=== PATIENT | female | born 1940 | race Caucasian/White ===

== ENCOUNTER 2018-03-09 13:25 | Emergency (ER) | payer MEDICARE ==
[~2018-03-09] VITALS: Ht 167.6 cm; Wt 74.0 kg
[~2018-03-09 13:25] MED LIST: GABA600T2 PO; HYDR-565 PO
[2018-03-09 13:30] VITALS: BP 120/62
[2018-03-09 13:59] LABS: BASOPHILS # (AUTO) 0.1 X10'3 (0-0.2); BASOPHILS % (AUTO) 0.9 % (0-1); EOSINOPHILS # (AUTO) 0.4 X10'3 (0-0.9); EOSINOPHILS % (AUTO) 5.6 % (0-6); HEMATOCRIT 40.1 % (35.0-45.0); HEMOGLOBIN 13.8 g/dl (12.0-16.0); LYMPHOCYTES # (AUTO) 1.3 X10'3 (1.1-4.8); LYMPHOCYTES % (AUTO) 16.5 % (21-51); MEAN CORPUSCULAR HEMOGLOBIN 29.7 PG (27.0-31.0); MEAN CORPUSCULAR HGB CONC 34.5 % (33.0-36.5); MEAN PLATELET VOLUME 7.1 FL (7.4-10.4); MONOCYTES # (AUTO) 0.3 X10'3 (0-0.9); MONOCYTES % (AUTO) 3.8 % (2-12); NEUTROPHILS # (AUTO) 5.7 X10'3 (1.8-7.7); NEUTROPHILS % (AUTO) 73.2 % (42-75); PLATELET COUNT 269 X10'3 (140-440); RED BLOOD COUNT 4.66 X10'6 (4.20-5.60); RED CELL DISTRIBUTION WIDTH 13.9 % (11.5-14.5); WHITE BLOOD COUNT 7.8 X10'3 (4.5-11.0)
[2018-03-09 14:06] LABS: PARTIAL THROMBOPLASTIN TIME 28 SECONDS (22-32); PROTHROMBIN TIME 10.7 SECONDS (9.0-12.0)
[2018-03-09 14:11] LABS: ALANINE AMINOTRANSFERASE 21 U/L (12-78); ALBUMIN 3.2 G/DL (3.4-5.0); ALBUMIN/GLOBULIN RATIO 0.7 (1.1-1.5); ALKALINE PHOSPHATASE 122 IU/L (46-116); ANION GAP 11 (8-16); ASPARTATE AMINO TRANSFERASE 17 U/L (10-37); BILIRUBIN,TOTAL 0.5 MG/DL (0.1-1.0); BLOOD UREA NITROGEN 14 MG/DL (7-18); BUN/CREATININE RATIO 9.7 (6.6-38.0); CALCIUM 9.2 MG/DL (8.5-10.1); CHLORIDE 106 MMOL/L (99-107); CREATININE 1.44 MG/DL (0.40-0.90); GLUCOSE 160 MG/DL (70-104); POTASSIUM 3.6 MMOL/L (3.5-5.1); SODIUM 143 MMOL/L (135-145); TOTAL CARBON DIOXIDE 25.8 MMOL/L (24-32); TOTAL PROTEIN 7.9 G/DL (6.4-8.2); eGFR 35 ML/MIN
[2018-03-09] MEDS ORDERED: AZIT-63 PO (17:12)
[2018-03-09] MEDS ORDERED: azithromycin 250mg tablet PO ONE (17:15)
== END 2018-03-09 17:34 | disposition home or self-care (01) ==
LOC: ER 13:25
DX: J06.9 Acute upper respiratory infection, unspecified (principal); K21.9 Gastro-esophageal reflux disease without esophagitis; Z90.710 Acquired absence of both cervix and uterus; Z98.890 Other specified postprocedural states; Z88.2 Allergy status to sulfonamides; Z88.5 Allergy status to narcotic agent; Z79.899 Other long term (current) drug therapy
CPT/HCPCS: 36415; 71045; 80053; 84484; 85025; 85610; 85730; 93005; 99285

== ENCOUNTER 2021-04-23 10:32 | Day surgery (SDC) | payer MEDICARE ==
[~2021-04-23] VITALS: Ht 167.6 cm; Wt 74.8 kg
[2021-04-23] VITALS (11 sets, daily range): BP systolic 117–150; BP diastolic 45–78
[~2021-04-23 10:32] MED LIST changes: +APIX5TAB3 PO; +ASPI-1071 PO; +COR3.125T PO; +GABA300C PO; -GABA600T2 PO; +HYDR-4353 PO; -HYDR-565 PO; +LISI2.5T2 PO
[2021-04-23] MEDS ORDERED: normal saline 1,000 ML IV SCH (11:10)
[2021-04-23] MEDS ORDERED: diphenhydrAMINE 25mg capsule PO PRN (11:10)
[2021-04-23 11:36] LABS: BASOPHILS # (AUTO) 0.1 X10'3 (0-0.2); BASOPHILS % (AUTO) 1.3 % (0-1); EOSINOPHILS # (AUTO) 0.2 X10'3 (0-0.9); EOSINOPHILS % (AUTO) 3.1 % (0-6); HEMATOCRIT 33.7 % (35.0-45.0); HEMOGLOBIN 10.6 g/dl (12.0-16.0); LYMPHOCYTES # (AUTO) 1.4 X10'3 (1.1-4.8); LYMPHOCYTES % (AUTO) 18.4 % (21-51); MEAN CORPUSCULAR HEMOGLOBIN 22.7 PG (27.0-31.0); MEAN CORPUSCULAR HGB CONC 31.3 g/dL (33.0-36.5); MEAN CORPUSCULAR VOLUME 72.4 FL (78-98); MEAN PLATELET VOLUME 6.7 FL (7.4-10.4); MONOCYTES # (AUTO) 0.4 X10'3 (0-0.9); NEUTROPHILS # (AUTO) 5.3 X10'3 (1.8-7.7); NEUTROPHILS % (AUTO) 71.2 % (42-75); PLATELET COUNT 363 X10'3 (140-440); RED BLOOD COUNT 4.66 X10'6 (4.20-5.60); RED CELL DISTRIBUTION WIDTH 17.9 % (11.5-14.5); WHITE BLOOD COUNT 7.4 X10'3 (4.5-11.0)
[2021-04-23] MEDS ORDERED: TRIA1TAB5 PO (11:37)
[2021-04-23] MEDS ORDERED: CARV3.122 PO (11:37)
[2021-04-23] MEDS ORDERED: CHOL50004 PO (11:37)
[2021-04-23 11:54] LABS: ALBUMIN 3.1 G/DL (3.4-5.0); ANION GAP 13 (8-16); BLOOD UREA NITROGEN 24 MG/DL (7-18); BUN/CREATININE RATIO 11.9 (6.6-38.0); CALCIUM 8.7 MG/DL (8.5-10.1); CHLORIDE 104 MMOL/L (99-107); CREATININE 2.01 MG/DL (0.40-0.90); GLUCOSE 118 MG/DL (70-104); MAGNESIUM 1.9 MG/DL (1.5-2.4); POTASSIUM 4.8 MMOL/L (3.5-5.1); SODIUM 141 MMOL/L (135-145); TOTAL CARBON DIOXIDE 24.1 MMOL/L (24-32); eGFR 24 ML/MIN
[2021-04-23] MEDS ORDERED: heparin 1,000unit/ml 10ml vial 10 ML ONE (13:00)
[2021-04-23] MEDS ORDERED: iohexol 350MG/ML 100ml bottle IV ONE (13:00)
[2021-04-23] MEDS ORDERED: LIDOcaine 1% (10mg/ml)w/preservative injection 20ml MDV ONE (13:00)
[2021-04-23] MEDS ORDERED: midazolam 1 mg/ML 2ml injection ONE ×2 (13:00→13:31)
[2021-04-23] MEDS ORDERED: iohexol 350 MG/ML 50ML vial IV ONE (13:00)
[2021-04-23] MEDS ORDERED: fentaNYL/PF 50MCG/1 ML 2ML syringe ONE ×2 (13:00→13:31)
--- NOTE | 2021-04-23 13:30 | NUR ---
MERCEDES Paul notified of CSF wbc 13, no orders received
== END 2021-04-23 18:15 | disposition home or self-care (01) ==
LOC: SSTAY O 10:32
PROVIDERS: ATTEND Internal Medicine Cardiovascular Disease
DX: I35.0 Nonrheumatic aortic (valve) stenosis (principal); I25.10 Atherosclerotic heart disease of native coronary artery without angina pectoris; I08.3 Combined rheumatic disorders of mitral, aortic and tricuspid valves; I48.0 Paroxysmal atrial fibrillation; I11.0 Hypertensive heart disease with heart failure; I50.9 Heart failure, unspecified; Z79.899 Other long term (current) drug therapy; E78.5 Hyperlipidemia, unspecified; Z87.891 Personal history of nicotine dependence; Z88.2 Allergy status to sulfonamides; Z88.5 Allergy status to narcotic agent; Z88.8 Allergy status to other drugs, medicaments and biological substances
CPT/HCPCS: 36415; 80048; 83735; 85025; 85610; 93005; 93454; 99152; 99153; C1760; C1769; C1894; J1644; J2001; J2250; J3010; J7030; Q0163; Q9967; A4620; A6258

== ENCOUNTER 2021-05-03 08:41 | Outpatient (CLI) | payer MEDICARE ==
[~2021-05-03] VITALS: Ht 167.6 cm; Wt 74.0 kg
[~2021-05-03 08:41] MED LIST changes: -ASPI-1071 PO; +CARV3.122 PO; +CHOL50004 PO; -COR3.125T PO; -LISI2.5T2 PO; +TRIA1TAB5 PO
[2021-05-03] MEDS ORDERED: IODIXANOL 320 MG/ML INFUS..BTL 100ML IV ONE (11:02)
[2021-05-03] MEDS ORDERED: atropine 1 MG/1 ML vial IV PRN (14:45)
[2021-05-03] MEDS ORDERED: atropine 1 MG/1 ML vial IV ONE (14:45)
[2021-05-03] MEDS ORDERED: propranolol 40mg tablet PO ONE (14:50)
[2021-05-03] MEDS ORDERED: propranolol 40mg tablet PO PRN (14:50)
== END 2021-05-03 23:59 | disposition home or self-care (01) ==
LOC: RT 08:41
PROVIDERS: ATTEND Internal Medicine Cardiovascular Disease
DX: I71.9 Aortic aneurysm of unspecified site, without rupture (principal); I65.23 Occlusion and stenosis of bilateral carotid arteries
CPT/HCPCS: 36415; 71046; 71275; 74174; 93880; 94010; 94727; 94729; J0461; Q9967; U0003

== ENCOUNTER 2021-05-20 06:29 | Day surgery (SDC) | payer MEDICARE ==
[2021-05-18 12:35] LABS: BASOPHILS # (AUTO) 0.1 X10'3 (0-0.2); BASOPHILS % (AUTO) 1.6 % (0-1); EOSINOPHILS # (AUTO) 0.4 X10'3 (0-0.9); EOSINOPHILS % (AUTO) 6.1 % (0-6); HEMATOCRIT 32.4 % (35.0-45.0); LYMPHOCYTES # (AUTO) 1.2 X10'3 (1.1-4.8); LYMPHOCYTES % (AUTO) 17.1 % (21-51); MEAN PLATELET VOLUME 6.9 FL (7.4-10.4); MONOCYTES # (AUTO) 0.5 X10'3 (0-0.9); MONOCYTES % (AUTO) 7.1 % (2-12); NEUTROPHILS # (AUTO) 4.8 X10'3 (1.8-7.7); NEUTROPHILS % (AUTO) 68.1 % (42-75); PLATELET COUNT 334 X10'3 (140-440); RED BLOOD COUNT 4.56 X10'6 (4.20-5.60); RED CELL DISTRIBUTION WIDTH 19.6 % (11.5-14.5); WHITE BLOOD COUNT 7.1 X10'3 (4.5-11.0)
[2021-05-18 12:50] LABS: PARTIAL THROMBOPLASTIN TIME 34 SECONDS (22-32)
[2021-05-18 12:51] LABS: ALANINE AMINOTRANSFERASE 11 U/L (12-78); ALBUMIN/GLOBULIN RATIO 0.7 (1.1-1.5); ALKALINE PHOSPHATASE 102 IU/L (46-116); ANION GAP 9 (8-16); ASPARTATE AMINO TRANSFERASE 14 U/L (10-37); BILIRUBIN,TOTAL 0.3 MG/DL (0.1-1.0); BLOOD UREA NITROGEN 31 MG/DL (7-18); BUN/CREATININE RATIO 16.1 (6.6-38.0); CALCIUM 8.5 MG/DL (8.5-10.1); CHLORIDE 105 MMOL/L (99-107); CREATININE 1.92 MG/DL (0.40-0.90); GLUCOSE 133 MG/DL (70-104); POTASSIUM 4.7 MMOL/L (3.5-5.1); SODIUM 140 MMOL/L (135-145); TOTAL CARBON DIOXIDE 26.1 MMOL/L (24-32); TOTAL PROTEIN 7.4 G/DL (6.4-8.2); eGFR 25 ML/MIN
[2021-05-18 13:09] LABS: ANISOCYTOSIS 2+; MICROCYTOSIS 1+; PLATELET ESTIMATE NORMAL
[2021-05-18 13:10] LABS: LARGE PLATELETS FEW
[2021-05-20] VITALS (14 sets, daily range): BP systolic 116–178; BP diastolic 55–82
[~2021-05-20] VITALS: Ht 167.6 cm; Wt 73.6 kg
[2021-05-20] MEDS ORDERED: normal saline 1000ml 1,000 ML IV SCH (06:48)
[2021-05-20] MEDS ORDERED: aspirin 325mg tablet PO ONE (06:48)
[2021-05-20] MEDS ORDERED: cefazolin/dext.iso 2gm/100ml 100 ML IV ONE (06:49)
[2021-05-20] MEDS ORDERED: vancomycin/NS 1 GM ADD-VANTAGE 250 ML IV ONE (06:49)
[2021-05-20] MEDS ORDERED: clopidogrel 300mg tablet PO ONE (06:50)
[2021-05-20] MEDS ORDERED: midazolam 1 mg/ML 2ml injection ONE ×2 (07:18→09:12)
[2021-05-20] MEDS ORDERED: LIDOcaine 1% (10mg/ml)w/preservative injection 20ml MDV ONE (07:18)
[2021-05-20] MEDS ORDERED: fentaNYL/PF 50MCG/1 ML 2ML syringe ONE ×2 (07:18→09:12)
[2021-05-20] MEDS ORDERED: heparin 1,000unit/ml 10ml vial 10 ML ONE (07:18)
[2021-05-20] MEDS ORDERED: iohexol 350MG/ML 100ml bottle IV ONE (07:18)
[2021-05-20] MEDS ORDERED: iohexol 350 MG/1 ML 200ml bottle ONE (07:18)
[2021-05-20] MEDS ORDERED: phenylephrine 10mg/ml inj. ONE (08:48)
[2021-05-20 11:14] LABS: ISTAT HGB ART 9.2 g/dl (12.0-16.0); ISTAT Hct ART 27 %PCV (35-48); ISTAT O2 SATURATION ARTERIAL 95 % (95-98); ISTAT SOURCE ART
--- NOTE | 2021-05-20 12:45 | NUR ---
Pt voided with bedpan. Addendum: 05/20/21 at 1425 by Randy Crook RN Amended: Links added.
--- NOTE | 2021-05-20 14:10 | NUR ---
Pt ambulated to BR to void. Addendum: 05/20/21 at 1425 by Randy Crook RN Amended: Links added.
[2021-05-24 06:19] LABS: ISTAT Hct MIX 28 %PCV (35-48); ISTAT O2 SATURATION MIX VENOUS 61 % (60-80); ISTAT SOURCE VEN
== END 2021-05-20 15:55 | disposition home or self-care (01) ==
LOC: SSTAY O 06:29
PROVIDERS: ATTEND Internal Medicine Cardiovascular Disease
DX: I25.10 Atherosclerotic heart disease of native coronary artery without angina pectoris (principal); I08.0 Rheumatic disorders of both mitral and aortic valves; I10 Essential (primary) hypertension; E78.5 Hyperlipidemia, unspecified; I73.9 Peripheral vascular disease, unspecified; Z87.891 Personal history of nicotine dependence; Z79.01 Long term (current) use of anticoagulants; Z20.822 Contact with and (suspected) exposure to COVID-19; Z79.899 Other long term (current) drug therapy
CPT/HCPCS: 76937; 80053; 82803; 85014; 85025; 85347; 85610; 85730; 87081; 87635; 92986; 93005; 93308; 93460; 99152; 99153; C1725; C1751; C1756; C1760; C1769; C1874; C1894; C9600; C9803; J1644; J2001; J2250; J2370; J3010; J7030; Q9967; 37220; 85008; 92953; A6258

== ENCOUNTER → 2021-06-24 | Outpatient (CLI) | payer MEDICARE ==
[~2021-06-24] VITALS: Ht 167.6 cm; Wt 73.3 kg
[2021-06-24 17:18] VITALS: BP 115/61
--- NOTE | 2021-06-24 17:19 | NUR ---
Patient and her were seen today for TAVR follow-up with Dr. Maier and Dr. Blake. KCCQ12 completed. Walk test was not attempted, patient unsteady. Vital signs measured. Echo and EKG reviewed with patient along with current condition of patients symptoms. Addendum: 06/24/21 at 1720 by Natasha Esparza RN Patient and her were seen today for TAVR follow-up with Dr. Maier. KCCQ12 completed. Walk test was not attempted, patient unsteady. Vital signs measured. Echo and EKG reviewed with patient along with current condition of patients symptoms.
== END | disposition home or self-care (01) ==
LOC: TAVR 14:25
PROVIDERS: ATTEND Internal Medicine Cardiovascular Disease
DX: I49.8 Other specified cardiac arrhythmias (principal); Z95.2 Presence of prosthetic heart valve; Z48.812 Encounter for surgical aftercare following surgery on the circulatory system
CPT/HCPCS: 93005